=== PATIENT | female | born 2005 | race Hispanic/Latino ===

== ENCOUNTER 2025-03-14 08:23 | Day surgery (SDC) | payer OTHER ==
[2025-03-14] MEDS ORDERED: Acetaminophen 500 MG TAB ONE (09:26)
[2025-03-14] MEDS: Acetaminophen 500 MG TAB PO SCH (09:26)
[2025-03-14] MEDS: Ferumoxytol (NON ERSD) 510 MG in 0.9 % Sodium Chloride 150 ML IVPB SCH (10:12)
[2025-03-14 13:17] VITALS: TEMP 98.5
[2025-03-14 15:00] VITALS: BP 114/61
== END 2025-03-14 15:01 | disposition home or self-care (01) ==
LOC: ONC/OP 08:23
PROVIDERS: ATTEND Family Medicine
DX: O99.019 Anemia complicating pregnancy, unspecified trimester (principal); Z3A.00 Weeks of gestation of pregnancy not specified
CPT/HCPCS: 96365; 96366; Q0138